=== PATIENT | female | born 1950 | race Two or more races ===

== ENCOUNTER 2019-07-16 12:15 | Emergency (ER) | payer OTHER, MEDICAID ==
[~2019-07-16] VITALS: Ht 167.6 cm; Wt 67.1 kg
[2019-07-16 12:38] VITALS: BP 157/85
== END 2019-07-16 13:26 | disposition home or self-care (01) ==
LOC: ER 12:15
DX: S63.92XA Sprain of unspecified part of left wrist and hand, initial encounter (principal); I11.0 Hypertensive heart disease with heart failure; I50.9 Heart failure, unspecified; I25.2 Old myocardial infarction; W01.0XXA Fall on same level from slipping, tripping and stumbling without subsequent striking against object, initial encounter; Y93.89 Activity, other specified; Y92.89 Other specified places as the place of occurrence of the external cause; Y99.8 Other external cause status
CPT/HCPCS: 73130

== ENCOUNTER 2021-09-08 15:58 | Emergency (ER) | payer OTHER, MEDICAID ==
[~2021-09-08] VITALS: Ht 167.6 cm; Wt 63.5 kg
[2021-09-08 16:09] VITALS: BP 133/96
[2021-09-08 19:01] LABS: Basophils # (auto) 0 10 ^3/uL (0-0.2); Basophils % (auto) 0.9 % (0.0-2.0); Eosinophils # (auto) 0.2 10 ^3/uL (0-0.8); Eosinophils % (auto) 3.5 % (0.0-7.0); Hematocrit 41.4 % (36.0-46.0); Hemoglobin 14.3 g/dL (12.2-16.2); Lymphocytes # (auto) 0.6 10 ^3/uL (0.4-5.4); Lymphocytes % (auto) 11.3 % (10.0-50.0); Mean Corpuscular Hemoglobin 31.6 pg (28.0-32.0); Mean Corpuscular Hgb Conc. 34.6 g/dL (32.0-36.0); Mean Corpuscular Volume 91.1 fL (80.0-100.0); Monocytes # (auto) 0.6 10 ^3/uL (0-1.3); Monocytes % (auto) 11.1 % (0.0-12.0); Neutrophils % (auto) 73.2 % (37.0-80.0); Nucleated Red Blood Cells % 0.1 %; Red Blood Cells 4.54 10^6/uL (4.0-5.20); Red Cell Distribution Width 13.7 % (11.8-14.3); White Blood Cell 5.5 10^3/uL (4.4-10.8)
[2021-09-08 19:19] LABS: Albumin 4.1 g/dL (3.4-5.0); Calcium 9.2 mg/dL (8.5-10.1); Magnesium 2.7 mg/dL (1.6-2.6); Potassium 3.6 mmol/L (3.5-5.1)
[2021-09-08 19:23] LABS: BUN/Creatinine Ratio 11.9; Bilirubin, Total 0.9 mg/dL (0.2-1.0); Total Protein 8.8 g/dL (6.4-8.2)
== END 2021-09-08 21:08 | disposition left against medical advice (07) ==
LOC: ER 15:58
DX: I24.9 Acute ischemic heart disease, unspecified (principal); I11.0 Hypertensive heart disease with heart failure; I50.9 Heart failure, unspecified; I25.2 Old myocardial infarction; Z90.49 Acquired absence of other specified parts of digestive tract; Z20.822 Contact with and (suspected) exposure to COVID-19
CPT/HCPCS: 36415; 71045; 80053; 83735; 84484; 85025; 93005

== ENCOUNTER 2021-09-28 20:29 | Emergency (ER) | payer OTHER, MEDICAID ==
[~2021-09-28] VITALS: Ht 167.6 cm; Wt 88.9 kg
[2021-09-28] MEDS ORDERED: ASPirin 81 mg TAB PO ONE (21:15)
[2021-09-28] MEDS ORDERED: SODIUM CHLORIDE 0.9% 1,000 ML IV ONE (21:15)
[2021-09-28 21:34] LABS: Basophils # (auto) 0 10 ^3/uL (0-0.2); Basophils % (auto) 0.7 % (0.0-2.0); Eosinophils # (auto) 0.2 10 ^3/uL (0-0.8); Eosinophils % (auto) 3.8 % (0.0-7.0); Hematocrit 35.8 % (36.0-46.0); Hemoglobin 12.5 g/dL (12.2-16.2); Lymphocytes # (auto) 1.5 10 ^3/uL (0.4-5.4); Lymphocytes % (auto) 23.9 % (10.0-50.0); Mean Corpuscular Hemoglobin 31.3 pg (28.0-32.0); Mean Corpuscular Hgb Conc. 34.9 g/dL (32.0-36.0); Mean Corpuscular Volume 89.7 fL (80.0-100.0); Monocytes # (auto) 0.4 10 ^3/uL (0-1.3); Monocytes % (auto) 6.6 % (0.0-12.0); Red Blood Cells 3.99 10^6/uL (4.0-5.20); Red Cell Distribution Width 13.7 % (11.8-14.3); White Blood Cell 6.1 10^3/uL (4.4-10.8)
[2021-09-28 21:51] LABS: Albumin 3.6 g/dL (3.4-5.0); Calcium 8.5 mg/dL (8.5-10.1); Potassium 3.5 mmol/L (3.5-5.1)
[2021-09-28 21:55] LABS: BUN/Creatinine Ratio 14.1; Bilirubin, Total 0.4 mg/dL (0.2-1.0); Total Protein 7.6 g/dL (6.4-8.2)
[2021-09-28 23:10] LABS: INR 1.01 (0.9-1.15); Partial Thromboplastin Time 27.3 sec (23.6-33.0)
[2021-09-29 04:23] VITALS: BP 164/97
== END 2021-09-29 04:22 | disposition home or self-care (01) ==
LOC: ER 20:29
DX: R07.89 Other chest pain (principal); R20.2 Paresthesia of skin; I11.0 Hypertensive heart disease with heart failure; I50.9 Heart failure, unspecified; I25.2 Old myocardial infarction; Z86.73 Personal history of transient ischemic attack (TIA), and cerebral infarction without residual deficits; Z90.49 Acquired absence of other specified parts of digestive tract; Z90.710 Acquired absence of both cervix and uterus; Z20.822 Contact with and (suspected) exposure to COVID-19
CPT/HCPCS: 36415; 71046; 80053; 83735; 83880; 84443; 84484; 85025; 85610; 85730; 87426; 93005; 96360; 99285; J7030

== ENCOUNTER 2021-12-26 16:31 | Emergency (ER) | payer OTHER, MEDICAID | END 2021-12-26 17:06 | disposition left against medical advice (07) | LOC: ER 16:32 | DX: S69.91XD Unspecified injury of right wrist, hand and finger(s), subsequent encounter (principal); Z53.21 Procedure and treatment not carried out due to patient leaving prior to being seen by health care provider; X58.XXXA Exposure to other specified factors, initial encounter; Y93.89 Activity, other specified; Y92.89 Other specified places as the place of occurrence of the external cause; Y99.8 Other external cause status ==

== ENCOUNTER 2025-01-07 00:52 | Emergency (ER) | payer OTHER, MEDICAID ==
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
[2025-01-07] MEDS ORDERED: METH-1181 PO (02:45)
[2025-01-07] MEDS ORDERED: DICL50TA4 PO (02:45)
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
[2025-01-07] MEDS: HYDROcodone-ACET 5/325MG TAB PO ONE (02:58)
[2025-01-07] MEDS: KETOROLAC TROMETH 60MG/2ML VIAL IM ONE (02:58)
[2025-01-07 03:03] VITALS: BP 166/100; PULSE 83; RESP 19; TEMP 97.7; O2SAT 98
== END 2025-01-07 03:18 | disposition home or self-care (01) ==
LOC: ER 00:52
DX: S46.811A Strain of other muscles, fascia and tendons at shoulder and upper arm level, right arm, initial encounter (principal); S13.4XXA Sprain of ligaments of cervical spine, initial encounter; I11.0 Hypertensive heart disease with heart failure; I50.9 Heart failure, unspecified; Z86.73 Personal history of transient ischemic attack (TIA), and cerebral infarction without residual deficits; Z90.49 Acquired absence of other specified parts of digestive tract; Z90.710 Acquired absence of both cervix and uterus; V43.62XA Car passenger injured in collision with other type car in traffic accident, initial encounter; Y93.I9 Activity, other involving external motion; Y92.488 Other paved roadways as the place of occurrence of the external cause; Y99.8 Other external cause status
CPT/HCPCS: 72040; 73000; 73030; 96372; 99284; J1885

== ENCOUNTER 2025-01-07 19:11 | Emergency (ER) | payer OTHER, MEDICAID ==
[~2025-01-07] VITALS: Ht 167.6 cm; Wt 80.3 kg
[~2025-01-07 19:11] MED LIST: DICL50TA4 PO; METH-1181 PO
[2025-01-07 19:16] VITALS: BP 150/93; RESP 17; TEMP 98; O2SAT 97
[2025-01-07 19:31] VITALS: PULSE 76
--- NOTE | 2025-01-07 19:38 | ECG ---
[facility] Test Date: 2025-01-07 Test Time: 19:31:16 Pat Name: ZAYRA HENRIQUEZ Department: [facility] ED Patient ID: [id number] Room: Gender: F Change Management Lead: : 1950 Requested By: JENNI BUNCH Order Number: [id number] Reading MD: Tyson Vega Measurements Intervals [place] Rate: 76 P: 51 MT: 139 QRS: 80 QRSD: 94 T: 72 QT: 405 QTc: 456 Interpretive Statements Sinus rhythm Electronically Signed On 01-11-2025 22:03:23 PDT by Tyson Vega Please click the below link to view image of tracing.
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
== END 2025-01-07 21:26 | disposition home or self-care (01) ==
LOC: ER 19:11
DX: S30.1XXA Contusion of abdominal wall, initial encounter (principal); G44.309 Post-traumatic headache, unspecified, not intractable; M25.512 Pain in left shoulder; R42 Dizziness and giddiness; I11.0 Hypertensive heart disease with heart failure; I50.9 Heart failure, unspecified; I25.2 Old myocardial infarction; Z86.73 Personal history of transient ischemic attack (TIA), and cerebral infarction without residual deficits; Z90.49 Acquired absence of other specified parts of digestive tract; Z90.710 Acquired absence of both cervix and uterus; Z79.899 Other long term (current) drug therapy; V89.2XXA Person injured in unspecified motor-vehicle accident, traffic, initial encounter; Y93.I9 Activity, other involving external motion; Y92.488 Other paved roadways as the place of occurrence of the external cause; Y99.8 Other external cause status
CPT/HCPCS: 70450; 71250; 74176; 93005